=== PATIENT | female | born 2000 | race Hispanic/Latino ===

== ENCOUNTER 2024-10-01 14:06 | Emergency (ER) | payer SELFPAY ==
[2024-10-01 14:58] LABS: Bilirubin Neg (Negative); Blood, Urine 250 (Negative); Clarity Slightly Cloudy (Clear); Glucose, Urine (Dipstick) Normal (Negative); Ketone, Urine Negative (Negative); Leukocyte 25 (Negative); Nitrite Negative (Negative); Protein, Urine (Dipstick) Negative (Neg-Trace); Specific Gravity, Urine 1.015 (1.005-1.030); Urobilinogen Normal mg/dL (Less than 2); pH, Urine 6.5 (5.0-9.0)
[2024-10-01 15:16] LABS: Bacteria/HPF Rare-Few HPF (None Seen); CAUTI Indications for Culture Pelvic or flank pain; RBC/HPF 21-50 HPF (0-3); Squamous Epithelial 0-3 HPF (0-3); WBC/HPF 0-3 HPF (0-3)
[2024-10-01 15:19] LABS: Urine Culture Reflex No No
== END 2024-10-01 15:46 | disposition home or self-care (01) ==
LOC: CSHERS 14:06
DX: O20.9 Hemorrhage in early pregnancy, unspecified (principal); Z3A.08 8 weeks gestation of pregnancy
CPT/HCPCS: 36415; 81001; 84702; 99284

== ENCOUNTER 2024-10-13 14:05 | Emergency (ER) | payer SELFPAY ==
[2024-10-13 15:41] LABS: #Basophils Less than 0.03 10x3/uL (0.0-0.2); #Monocytes 0.41 10x3/uL (0.0-1.1); #Neutrophils 5.65 10x3/uL (1.5-8.4); %Basophils 0.2 % (0.0-2.0); %Eosinophils 1.1 % (0.0-6.0); %Monocytes 4.4 % (0.0-10.0); %Neutrophils 60.1 % (40.0-75.0); Hematocrit 37.6 % (34.9-44.5); Hemoglobin 13.3 g/dL (12.0-15.5); Mean Corpuscular HGB CONC 35.4 g/dL (32.0-36.0); Mean Corpuscular Hemoglobin 31.7 pg (27.0-33.0); Mean Corpuscular Volume 89.5 fL (81.6-98.3); Mean Platelet Volume 9.5 fL (7.4-10.4); Platelet Count 342 10x3/uL (150-450); RBC Distribution Width 12.2 % (11.5-14.5); White Blood Cell (WBC) Count 9.39 10x3/uL (3.5-10.5)
[2024-10-13 15:54] LABS: ALT (SGPT) 22 U/L (8-55); AST (SGOT) 19 U/L (5-34); Albumin 4.7 g/dL (3.5-5.0); Alkaline Phosphatase 81 U/L (40-110); Anion Gap 12 mmol/L (10-20); BUN (Urea Nitrogen) 6 mg/dL (7.0-18.7); Bilirubin, Total 0.6 mg/dL (0.2-1.2); Calc. Creatinine Clearance 0 mL/min (70-130); Calcium 9.9 mg/dL (7.8-10.44); Carbon Dioxide 24 mmol/L (22-29); Chloride 106 mmol/L (98-107); Estimated GFR 125; Globulin 3.6 g/dL (2.4-3.5); Glucose 85 mg/dL (70-105); Potassium 3.7 mmol/L (3.5-5.1); Protein, Total 8.3 g/dL (6.0-8.3); Sodium 138 mmol/L (136-145)
[2024-10-13] MEDS ORDERED: PROPOFOL 20 ML ONE (17:41)
[2024-10-13] MEDS ORDERED: Midazolam HCl 2 mg/2 ml Vial ONE (17:41)
[2024-10-13] MEDS ORDERED: fentaNYL 50 mcg/mL 1 mL Vial ONE ×3 (17:41→19:31)
[2024-10-13] MEDS ORDERED: Lidocaine 1% PF 5 ML VIAL ONE (17:45)
[2024-10-13] MEDS ORDERED: Rocuronium Bromide 10 MG/ML (10ML VIAL) ONE (17:45)
[2024-10-13] MEDS ORDERED: Bupivacaine HCl 0.5%/Epinephrine 1:200,000/PF 30 ml Vial ONE (17:50)
[2024-10-13] MEDS ORDERED: Dexamethasone 4 mg/ml Vial ONE (17:55)
[2024-10-13] MEDS ORDERED: Ondansetron PF 4 MG/2 ML Vial ONE (17:55)
[2024-10-13] MEDS ORDERED: diphenhydrAMINE 50 MG/ML VIAL ONE (18:15)
[2024-10-13] MEDS ORDERED: SUGAMMADEX SODIUM 200 MG/2 ML VIAL ONE (18:16)
[2024-10-13] MEDS ORDERED: HYDROcodone/Acetaminophen 5/325 mg Tablet PO PRN (19:13)
[2024-10-13] MEDS ORDERED: Lactated Ringer's 1,000 ML IV SCH (19:15)
[2024-10-13] MEDS ORDERED: HYDROcodone/Acetaminophen 5/325 mg Tablet ONE (19:50)
[2024-10-13] MEDS ORDERED: Acetaminophen 500 MG TAB PO PRN (20:15)
[2024-10-13] MEDS ORDERED: Ibuprofen 200 MG TAB PO PRN (20:20)
== END 2024-10-13 18:40 | disposition admitted as inpatient to this hospital (09) ==
LOC: CSHERS 14:05
DX: O00.90 Unspecified ectopic pregnancy without intrauterine pregnancy (principal)
CPT/HCPCS: 80053; 84702; 85025; 86900; 86901; 88305; 99285; J1100; J1200; J2250; J2405; J2704; J3010